=== PATIENT | female | born 1940 | race Caucasian/White ===

== ENCOUNTER 2017-08-19 07:42 | Emergency (ER) | payer OTHER ==
[2017-08-19 08:00] VITALS: BP 159/79; PULSE 74; TEMP 98.9; BMI 25.3
--- NOTE | 2017-08-19 08:49 | PDOC ---
History of Present Illness - General Chief Complaint: Injury Stated Complaint: R FINGER INJURY S/P FALL Time Seen by Provider: 08/19/17 08:30 History Source: Patient Exam Limitations: No Limitations - History of Present Illness Initial Comments: 08/19/17 09:02 Chief complaint: Fall, bruising of right fifth finger, and deformity of the right fifth finger History of present illness: Patient is a 76-year-old female with history of hypertension here today after falling while walking her dog with her right hand stretched outward. Patient has bruising noted over her right fourth metacarpal proximal phalangeal and patient has deformity of the right fifth metacarpal area and proximal phalangeal. Patient is not able to bend or straighten rt. 5th mcp jt and rt. 5th pip jt. She denies any numbness of right hand or any other injuries. Patient denies hitting her head. Patient was offered pain medication however declined does not want anything presently. Occurred: reports: this morning Severity: reports: mild Pain Location: reports: upper extremity (rt. 4th mcp, 5th digit ) Method of Injury: Yes: fall Modifying Factors: improves with: None Loss of Consciousness: no loss of consciousness Associated Symptoms (Fall): denies symptoms Past History - Past Medical History Allergies/Adverse Reactions: Allergies Allergy/AdvReac Type Severity Reaction Status Date / Time Penicillins AdvReac Verified 08/19/17 07:49 Home Medications: Ambulatory Orders Losartan 50Mg/Hctz 12.5MG [Hyzaar -] 1 tab PO ASDIR 08/19/17 COPD: No DVT: No HTN: Yes Hypercholesterolemia: Yes - Immunization History Immunization Up to Date: Yes - Suicide/Smoking/Psychosocial Hx Smoking History: Never smoked Have you smoked in the past 12 months: No Information on smoking cessation initiated: No Hx Alcohol Use: No Drug/Substance Use Hx: No Substance Use Type: None Review of Systems - Review of Systems Able to Perform ROS?: Yes Constitutional: No: Symptoms Reported HEENTM: No: Symptoms Reported Respiratory: No: Symptoms reported Cardiac (ROS): No: Symptoms Reported ABD/GI: No: Symptoms Reported : No: Symptoms Reported Musculoskeletal: Yes: Joint Pain (rt. 4th proximal phalange bruising, tender, rt. 5th 5th proximal phalange with deformity of pip jt ), Joint Swelling (over rt. pip jt 5th ) Integumentary: Yes: Bruising (right 4th proximal phalange) Neurological: No: Symptoms reported *Physical Exam - Vital Signs Last Vital Signs Temp Pulse Resp BP Pulse Ox 98.9 F 74 15 159/79 99 08/19/17 07:50 08/19/17 07:50 08/19/17 07:50 08/19/17 07:50 08/19/17 07:50 - Physical Exam General Appearance: Yes: Appropriately Dressed Comments:: 08/19/17 19:01 radial pulse 4 = rt Extremity: positive: Normal Capillary Refill, Normal Range of Motion (rt. 4th finger pip jt, dip jt, mcp jt, full range of motion of 1st, 2nd and 3rd digit rt. hand, wrist, elbow ), Tender (rt. 4th & 5th pip jt ), Swelling (rt. 5th pip jt eccymosis, after reduction of rt. 5th pip jt good alignment of pip jt and dip with full range of motion of mcp, pip jt, dip jt rt. 5th finger ). negative: Normal Inspection (rt. 5th pip jt deformity) Integumentary: positive: Ecchymosis (rt/. 4th proximal phalange ) Neurologic: positive: Normal Response, Respond to painful stimul, Responsive. negative: Numbness, Sensory Deficit (rt 4th and 5th finger ) Procedures - Consent Consent obtained: From Patient - Splinting Splint Location: Right: Finger (4th & 5th ) Pre-Proc Neuro Vasc Exam: normal Hand-Made Type: taped Splint Type: Yes: Finger (leidy taped rt. 4th & 5th ) Post-Proc Neuro Vasc Exam: normal Complications: No - Joint Reduction Right Pre-Procedure NV Exam: normal Conscious Sedation: No Finger Block: 5th digit Reduction Attempts: 1 Procedure: Traction Counter Traction Post-Procedure NV Exam: normal Post Joint Reduction Film: joint reduced Splint: Yes (leidy taped rt. 4th & 5th fingers) ED Treatment Course - RADIOLOGY Radiology Studies Ordered: Category Date Time Status HAND- RIGHT [RAD] Stat Radiology 08/19/17 08:46 Ordered Medical Decision Making - Medical Decision Making 08/19/17 09:06 Patient is a 76-year-old female with history of hypertension here today after falling while walking her dog with her right hand stretched outward. Patient has bruising noted over her right fourth metacarpal proximal phalangeal and patient has deformity of the right fifth metacarpal area and proximal phalangeal. Patient is not able to bend or straighten rt. 5th mcp jt and rt. 5th pip jt. She denies any numbness of right hand or any other injuries. Patient denies hitting her head. Patient was offered pain medication however declined does not want anything presently. FALL R/O fracture rt. 4th mcp/ pip jt, and 5th finger fracture rt. 4th proximal phalange fracture 5th proximal phalange PLAN: xray rt. hand fx of rt. 4th proximal phalange proximal aspect non displaced, 5th proximal phalange/proximal aspect angulated fracture per ABDO reduction of rt. 5th finger post reduction xray good alignment of 5th proximal phalange pt. is able extend and flex 4th finger at mcp, pip jt, dip jt, and 5th proximal phalange follow up with orth o 08/19/17 19:06 08/19/17 19:10 *DC/Admit/Observation/Transfer Diagnosis at time of Disposition: Fracture, finger, multiple sites - Discharge Dispostion Disposition: HOME Condition at time of disposition: Stable - Referrals Referrals: Devon Ashton MD [Staff Physician] - - Patient Instructions Additional Instructions: Keep right fourth and fifth fingers leidy taped do not remove Follow-up with orthopedist as soon as possible today or tomorrow call for an appointment right away You may apply ice to right fourth and fifth finger every hour for 10-15 minutes while awake today or tomorrow Take ibuprofen or acetaminophen as needed as her to by coper hand for pain Return to emergency room if any numbness of fingers or fingers feel cold Patient voiced understanding of discharge instructions and all questions were answered Thank you for choosing [facility] emergency room for your medical needs today - Post Discharge Activity
== END 2017-08-19 09:37 | disposition home or self-care (01) ==
LOC: JERFT 07:42 → JER 07:42 → JERFT 09:37
PROC: 0PSTXZZ Reposition Right Finger Phalanx, External Approach (ICD-10-PCS; principal; 2017-08-19)
DX: S62.646A Nondisplaced fracture of proximal phalanx of right little finger, initial encounter for closed fracture (principal); S62.644A Nondisplaced fracture of proximal phalanx of right ring finger, initial encounter for closed fracture; W18.39XA Other fall on same level, initial encounter; Y93.K1 Activity, walking an animal; Y92.89 Other specified places as the place of occurrence of the external cause; Y99.8 Other external cause status
CPT/HCPCS: 26742; 73130-TC-RT; 73140-TC-RT; 99281-25

== ENCOUNTER 2024-08-08 08:59 | Emergency (ER) | payer OTHER ==
[2024-08-08 09:07] VITALS: RESP 18; TEMP 97.8; BMI 22.1
[2024-08-08] MEDS ORDERED: DIPHTH,PERTUSS(ACELL),TET 0.5 ML DISP.SYRIN IM ONE (10:35)
[2024-08-08] MEDS: DIPHTH,PERTUSS(ACELL),TET 0.5 ML DISP.SYRIN IM ONE (10:54)
[2024-08-08 13:20] LABS: BASO % 0.6 % (0-2.0); EOS % 1.5 % (0-4.5); HEMATOCRIT 30.1 % (32.4-45.2); HEMOGLOBIN 10.2 GM/dL (10.7-15.3); LYMPH % 20.4 % (8-40); MCH 30.6 pg (25.7-33.7); MCHC 33.9 g/dl (32.0-36.0); MEAN CELL VOLUME 90.3 fl (80-96); MEAN PLT VOLUME 8.5 fl (7.5-11.1); MONO % 6.2 % (3.8-10.2); NEUT % 71.3 % (42.8-82.8); PLATELET COUNT 253 10^3/uL (134-434); RBC 3.33 M/mm3 (3.60-5.2); RDW 13.3 % (11.6-15.6); WHITE BLOOD COUNT 9.7 K/mm3 (4.0-10.0)
[2024-08-08 13:24] LABS: POTASSIUM 4.6 mmol/L (3.5-5.1)
[2024-08-08] MEDS ORDERED: LIDOCAINE HCL 1%, 10 MG/ML (20ML VIAL) ONE (13:25)
[2024-08-08 13:26] LABS: ALBUMIN 3.6 g/dl (3.4-5.0); CALCIUM 9.4 mg/dL (8.5-10.1)
[2024-08-08 13:30] LABS: CREATININE 1.5 mg/dL (0.55-1.3)
[2024-08-08 13:31] LABS: BILIRUBIN,TOTAL 0.4 mg/dL (0.2-1); TOT PROT 6.6 g/dl (6.4-8.2)
[2024-08-08] MEDS: LIDOCAINE HCL 1%, 10 MG/ML (50 mL VIAL) SQ ONE (13:32)
[2024-08-08 14:01] VITALS: BP 176/51; PULSE 65
[2024-08-08 14:45] LABS: MAGNESIUM 2.1 mg/dL (1.8-2.4)
== END 2024-08-08 17:01 | disposition home or self-care (01) ==
LOC: JER 08:59
PROC: 2W3KX1Z Immobilization of Left Finger using Splint (ICD-10-PCS; principal; 2024-08-08)
PROC: 3E0234Z Introduction of Serum, Toxoid and Vaccine into Muscle, Percutaneous Approach (ICD-10-PCS; 2024-08-08)
DX: S62.647A Nondisplaced fracture of proximal phalanx of left little finger, initial encounter for closed fracture (principal); R07.81 Pleurodynia; W18.39XA Other fall on same level, initial encounter; Y93.01 Activity, walking, marching and hiking; Z23 Encounter for immunization
CPT/HCPCS: 29130; 36415; 70450-TC; 70486-TC; 71046-TC-FY; 71101-TC-LT-FY; 72125-TC; 73130-TC-LT-FY; 80053; 83735; 84484; 85025; 90471; 90715; 93005; 93010; 99285-25